=== PATIENT | male | born 1955 | race Caucasian/White ===

== ENCOUNTER 2020-02-13 09:20 | Inpatient (IN) | payer OTHER ==
[~2020-02-13] VITALS: Ht 177.8 cm; Wt 97.9 kg
[2020-02-13 10:14] LABS: BASOPHILS % (AUTO) 0 % (0-1); EOSINOPHILS % (AUTO) 0 % (1-7); LYMPHOCYTES % (AUTO) 10 % (22-44); MEAN CORPUSCULAR HEMOGLOBIN 31.2 pg (27.5-34.5); MEAN PLATELET VOLUME 7.5 fL (7.4-10.4); MONOCYTES % (AUTO) 9 % (2-9); NEUTROPHILS % (AUTO) 81 % (42-75); PLATELET COUNT 264 x10^3/uL (130-400); RED BLOOD COUNT 5.39 x10^6/uL (4.38-5.82); RED CELL DISTRIBUTION WIDTH 13.7 % (9.4-14.8)
[2020-02-13 10:19] LABS: MD NO
[2020-02-13 10:21] LABS: ANION GAP 6 mmol/L (5-15); CALCIUM 8.9 mg/dL (8.5-10.1); CHLORIDE 109 mmol/L (98-107)
[2020-02-13] MEDS ORDERED: SODIUM CHLORIDE FLUSH 10ML SYR IVF PRN (11:00)
[2020-02-13] MEDS ORDERED: ACETAMINOPHEN 325 MG TABLET PO PRN (11:30)
[2020-02-13] MEDS ORDERED: ONDANSETRON 2MG/ML, 2ML IVPush PRN (11:30)
[2020-02-13] MEDS ORDERED: ONDANSETRON ODT 4 MG PO PRN (11:30)
[2020-02-13] MEDS: HEPARIN 5,000 UNITS/ML, 1ML SQ SCH ×2 (11:30→21:38)
[2020-02-13] MEDS ORDERED: HEPARIN 5,000 UNITS/ML, 1ML ONE (11:35)
[2020-02-13] MEDS ORDERED: CARVEDILOL 3.125 MG TABLET ONE (11:35)
[2020-02-13] MEDS: CARVEDILOL 6.25 MG TABLET PO SCH ×2 (11:38→18:47)
[2020-02-13] MEDS: SODIUM CHLORIDE 0.9% 1,000 ML IV SCH (11:38)
--- NOTE | 2020-02-13 12:25 | NUR ---
PT TO MRI
[2020-02-13 15:25] VITALS: BP 195/118
[2020-02-13 18:45] VITALS: BP 176/112
[2020-02-13 19:13] VITALS: BP 175/107
[2020-02-13 21:33] VITALS: BP_SYST 166; BP_SYST 174; BP_DIAS 103; BP_DIAS 110
[2020-02-13] MEDS: ATORVASTATIN 40 MG TABLET PO SCH (21:37)
[2020-02-14 01:42] VITALS: BP 139/85
[2020-02-14] MEDS: SODIUM CHLORIDE 0.9% 1,000 ML IV SCH (03:38)
[2020-02-14 03:47] LABS: BASOPHILS % (AUTO) 1 % (0-1); EOSINOPHILS % (AUTO) 1 % (1-7); LYMPHOCYTES % (AUTO) 17 % (22-44); MEAN CORPUSCULAR HEMOGLOBIN 30.9 pg (27.5-34.5); MEAN CORPUSCULAR HGB CONC 33.3 g/dL (33.2-36.2); MEAN PLATELET VOLUME 7.8 fL (7.4-10.4); MONOCYTES % (AUTO) 11 % (2-9); NEUTROPHILS % (AUTO) 71 % (42-75); PLATELET COUNT 247 x10^3/uL (130-400); RED BLOOD COUNT 4.86 x10^6/uL (4.38-5.82); RED CELL DISTRIBUTION WIDTH 13.6 % (9.4-14.8)
[2020-02-14 03:54] LABS: MD NO
[2020-02-14 04:01] LABS: ANION GAP 4 mmol/L (5-15); CALCIUM 8.5 mg/dL (8.5-10.1); CHLORIDE 108 mmol/L (98-107)
[2020-02-14 04:03] LABS: CHOL/HDL RATIO 3.9; CHOLESTEROL, TOTAL 155 mg/dL (140-239); HDL CHOL % 26 % (26-37); HDL CHOLESTEROL (DIRECT) 40 mg/dL (40-60); LDL CHOLESTEROL,CALCULATED 82 mg/dL (54-169); LDL/HDL RATIO 2.1 (0.5-3.0); TRIGLYCERIDES 164 mg/dL (50-200); VLDL CHOLESTEROL 33 mg/dL (0-25)
[2020-02-14 05:57] VITALS: BP 177/118
[2020-02-14] MEDS: ASPIRIN 325 MG TABLET PO SCH (06:00)
[2020-02-14] MEDS: HEPARIN 5,000 UNITS/ML, 1ML SQ SCH ×3 (06:01→21:55)
[2020-02-14] MEDS: CARVEDILOL 6.25 MG TABLET PO SCH ×2 (06:01→17:19)
[2020-02-14 06:37] VITALS: BP 178/109
[2020-02-14] MEDS ORDERED: SENNA/DOCUSATE TABLET PO SCH ×2 (09:00→21:00)
[2020-02-14] MEDS: SENNA/DOCUSATE TABLET PO SCH (09:30)
[2020-02-14] MEDS: ISOSORBIDE DINITRATE 10 MG TABLET PO SCH ×3 (10:32→21:54)
[2020-02-14] MEDS ORDERED: SODIUM CHLORIDE 0.9% 1,000 ML IV SCH (11:30)
[2020-02-14 12:10] VITALS: BP 167/89
[2020-02-14 17:15] VITALS: BP 164/96
[2020-02-14 21:53] VITALS: BP 164/97
[2020-02-14] MEDS: ATORVASTATIN 40 MG TABLET PO SCH (21:55)
[2020-02-15 01:45] VITALS: BP 151/93
[2020-02-15 05:58] VITALS: BP 164/95
[2020-02-15] MEDS: ASPIRIN 325 MG TABLET PO SCH (05:59)
[2020-02-15] MEDS: CARVEDILOL 6.25 MG TABLET PO SCH (05:59)
[2020-02-15] MEDS: HEPARIN 5,000 UNITS/ML, 1ML SQ SCH ×2 (06:00→13:30)
[2020-02-15 06:25] VITALS: BP 153/93
[2020-02-15] MEDS: SENNA/DOCUSATE TABLET PO SCH (09:00)
[2020-02-15] MEDS: ISOSORBIDE DINITRATE 10 MG TABLET PO SCH (09:10)
[2020-02-15] MEDS ORDERED: CLOPIDOGREL 75 MG TABLET PO SCH (10:30)
[2020-02-15 12:04] VITALS: BP 163/94
[2020-02-15] MEDS ORDERED: CARV6.2512 PO (12:32)
[2020-02-15] MEDS ORDERED: ISOS10TA2 PO (12:32)
[2020-02-15] MEDS ORDERED: ASPI-515 PO (12:32)
[2020-02-15] MEDS ORDERED: HYDR-3342 PO (12:32)
[2020-02-15] MEDS ORDERED: ATOR40TA78 PO (12:32)
[2020-02-15] MEDS ORDERED: CLOP75TA PO (12:32)
[2020-02-15] MEDS ORDERED: ISOSORBIDE DINITRATE 20 MG TABLET PO SCH (16:00)
[2020-02-16] MEDS ORDERED: ASPIRIN 81 MG TABLET CHEW PO SCH (09:00)
== END 2020-02-15 17:22 | disposition home or self-care (01) | DRG 66 ==
LOC: ED 10:22 → EDIP 11:45 → 4WST 13:34 → EDIP 13:36 → 4WST 15:20
PROVIDERS: ADMIT Internal Medicine; ATTEND Internal Medicine
DX: I63.89 Other cerebral infarction (principal); I10 Essential (primary) hypertension; E66.9 Obesity, unspecified; Z68.31 Body mass index [BMI] 31.0-31.9, adult; Z91.14 Patient's other noncompliance with medication regimen
CPT/HCPCS: 36415; 70450; 70551; 80048; 80061; 82040; 85025; 93005; 93306; 93356; 93880; G0378; J1644; J7030

== ENCOUNTER 2020-02-24 17:19 | Inpatient (IN) | payer OTHER ==
[~2020-02-24] VITALS: Ht 177.8 cm; Wt 176.2 kg
[~2020-02-24 17:19] MED LIST: ASPI-515 PO; ATOR40TA78 PO; CARV6.2512 PO; CLOP75TA PO; HYDR-3342 PO; ISOS10TA2 PO
--- NOTE | 2020-02-24 17:42 | NUR ---
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
--- NOTE | 2020-02-24 18:00 | NUR ---
THIS IS A 64 YO MALE COMING IN FOR HIGH BLOOD PRESSURE. PATIENT EXPERIENCED BLURRED VISION AND TUCKER EARLIER TODAY, TUCKER IS STILL PRESENT, BLURRED VISION HAS RESOLVED. PATIENT WAS SEEN HERE APPROX 11 DAYS AGO FOR A STROKE. PATIENT HAS MINOR DEFICITS FROM STROKE, SLIGHTLY DIMINISHED SENSATION ON RIGHT UE AND LE, AMBULATORY WITH STEADY GAIT, CLEAR SPEECH, PERRLA, EQUAL STRENGTH IN ALL EXTREMITIES. PIV PLACED, ALL MONITORING IN PLACE, NSR ON [employer] REPRESENTATIVE. CALL LIGHT IN REACH, ERP IN ROOM FOR EVAL
[2020-02-24 18:16] LABS: BASOPHILS % (AUTO) 1 % (0-1); EOSINOPHILS % (AUTO) 1 % (1-7); LYMPHOCYTES % (AUTO) 14 % (22-44); MEAN CORPUSCULAR HEMOGLOBIN 31.2 pg (27.5-34.5); MEAN CORPUSCULAR HGB CONC 33.6 g/dL (33.2-36.2); MEAN PLATELET VOLUME 7.3 fL (7.4-10.4); MONOCYTES % (AUTO) 7 % (2-9); NEUTROPHILS % (AUTO) 76 % (42-75); PLATELET COUNT 321 x10^3/uL (130-400); RED BLOOD COUNT 5.04 x10^6/uL (4.38-5.82); RED CELL DISTRIBUTION WIDTH 13.8 % (9.4-14.8)
[2020-02-24 18:27] LABS: MD NO
[2020-02-24 18:29] LABS: ANION GAP 6 mmol/L (5-15); CHLORIDE 110 mmol/L (98-107)
[2020-02-24] MEDS ORDERED: hydrALAzine 20 MG/ML, 1ML IV ONE (18:30)
--- NOTE | 2020-02-24 18:32 | NUR ---
PATIENT MEDICATED PER EMAR
[2020-02-24 18:35] LABS: ALANINE AMINOTRANSFERASE 24 U/L (12-78); ALKALINE PHOSPHATASE 52 U/L (45-117); BILIRUBIN,TOTAL 0.8 mg/dL (0.2-1.0); CREATININE 1.16 mg/dL (0.7-1.3); TOTAL PROTEIN 7.8 g/dL (6.4-8.2); TROPONIN I < 0.015 ng/mL (0.000-0.045)
--- NOTE | 2020-02-24 19:07 | NUR ---
PATIENT AMBULATORY WITH STEADY GAIT TO RESTROOM
[2020-02-24] MEDS ORDERED: ENALAPRILAT 1.25 MG/ML, 1ML ONE (20:15)
--- NOTE | 2020-02-24 20:27 | NUR ---
TASK RN, COVERING PRIMARY RN MEAL BREAK. MED GIVEN PER EMAR FOR HTN 212/131 LEFT ARM, 204/121 ON R ARM. PT DENIES PAIN OR DISCOMFORT AT THIS TIME. ATTEMPT TO DO MED REC. PT DOES NOT REMEMBER ANY MEDICATION NAMES OR DOSAGES. CONTINUE TO MONITOR. CALL LIGHT WITHIN REACH.
[2020-02-24] MEDS ORDERED: ENALAPRILAT 1.25 MG/ML, 2ML IV ONE (20:30)
[2020-02-24] MEDS ORDERED: ACETAMINOPHEN 325 MG TABLET PO PRN (21:00)
[2020-02-24] MEDS ORDERED: ENALAPRILAT 1.25 MG/ML, 2ML IV PRN (21:00)
[2020-02-24] MEDS ORDERED: ONDANSETRON ODT 4 MG PO PRN (21:00)
[2020-02-24] MEDS ORDERED: POLYETHYLENE GLYCOL 17 GM PACKET PO PRN (21:00)
[2020-02-24] MEDS ORDERED: BISACODYL 10 MG SUPP PR PRN (21:00)
--- NOTE | 2020-02-24 21:49 | NUR ---
REPORT GIVEN TO LYLA COLBERT. PLAN OF CARE DISCUSSED
[2020-02-24 22:04] VITALS: BP 224/125
[2020-02-24] MEDS: ISOSORBIDE DINITRATE 20 MG TABLET PO SCH (22:27)
[2020-02-24] MEDS: SODIUM CHLORIDE FLUSH 10ML SYR IVF SCH (22:28)
[2020-02-24] MEDS: ATORVASTATIN 40 MG TABLET PO SCH (22:28)
[2020-02-24] MEDS: CARVEDILOL 6.25 MG TABLET PO SCH (22:28)
[2020-02-24] MEDS ORDERED: CALCIUM CARBONATE 500 MG TAB.CHEW PO PRN (23:30)
[2020-02-25] VITALS (11 sets, daily range): BP systolic 135–175; BP diastolic 84–104
[2020-02-25] MEDS: CARVEDILOL 6.25 MG TABLET PO SCH ×2 (06:21→16:29)
[2020-02-25] MEDS: CLOPIDOGREL 75 MG TABLET PO SCH (07:39)
[2020-02-25] MEDS: ISOSORBIDE DINITRATE 20 MG TABLET PO SCH ×3 (07:40→19:55)
[2020-02-25] MEDS: SENNA/DOCUSATE TABLET PO SCH (07:40)
[2020-02-25] MEDS: SODIUM CHLORIDE FLUSH 10ML SYR IVF SCH ×2 (07:40→19:55)
[2020-02-25] MEDS ORDERED: LISINOPRIL 10 MG TABLET PO SCH (09:00)
[2020-02-25] MEDS: LISINOPRIL 10 MG TABLET PO SCH (19:54)
[2020-02-25] MEDS: ATORVASTATIN 40 MG TABLET PO SCH (19:55)
[2020-02-26 01:32] VITALS: BP 121/79
[2020-02-26 04:38] VITALS: BP 132/90
[2020-02-26] MEDS: CARVEDILOL 6.25 MG TABLET PO SCH (06:37)
[2020-02-26 06:38] VITALS: BP 160/103
[2020-02-26 07:11] VITALS: BP 167/112
[2020-02-26] MEDS: LISINOPRIL 10 MG TABLET PO SCH (08:13)
[2020-02-26] MEDS: CLOPIDOGREL 75 MG TABLET PO SCH (08:13)
[2020-02-26] MEDS: ISOSORBIDE DINITRATE 20 MG TABLET PO SCH ×2 (08:13→16:26)
[2020-02-26] MEDS: SENNA/DOCUSATE TABLET PO SCH (08:14)
[2020-02-26] MEDS: SODIUM CHLORIDE FLUSH 10ML SYR IVF SCH (08:16)
[2020-02-26] MEDS ORDERED: CHLORTHALIDONE 25 MG TABLET PO SCH (09:30)
[2020-02-26 09:36] VITALS: BP 146/88
[2020-02-26] MEDS ORDERED: CLON0.1T22 PO (12:13)
[2020-02-26] MEDS ORDERED: HYDR-3343 PO (12:13)
[2020-02-26] MEDS ORDERED: LISI-167 PO (12:13)
[2020-02-26] MEDS ORDERED: CHLO25TA PO (12:13)
[2020-02-26 12:43] VITALS: BP 150/90
[2020-02-26] MEDS ORDERED: CARVEDILOL 6.25 MG TABLET PO SCH (18:00)
== END 2020-02-26 17:43 | disposition home or self-care (01) | DRG 305 ==
LOC: ED 20:07 → EDIP 20:08 → 4WST 22:00
PROVIDERS: ADMIT Internal Medicine; ATTEND Internal Medicine
DX: I16.0 Hypertensive urgency (principal); I50.30 Unspecified diastolic (congestive) heart failure; Z68.43 Body mass index [BMI] 50.0-59.9, adult; F12.90 Cannabis use, unspecified, uncomplicated; I11.0 Hypertensive heart disease with heart failure; E78.5 Hyperlipidemia, unspecified; E66.01 Morbid (severe) obesity due to excess calories; Z86.73 Personal history of transient ischemic attack (TIA), and cerebral infarction without residual deficits; Z91.19 Patient's noncompliance with other medical treatment and regimen
CPT/HCPCS: 36415; 70450; 71045; 80053; 84484; 85025; 93005; 93975; 96374; 99291; G0378

== ENCOUNTER 2020-09-14 11:31 | Emergency (ER) | payer MEDICARE ==
[~2020-09-14] VITALS: Ht 177.8 cm; Wt 99.7 kg
[~2020-09-14 11:31] MED LIST changes: -ASPI-515 PO; +ASPI-963 PO; +CHLO25TA PO; +CLON0.1T22 PO; +HYDR-3343 PO; +LISI-167 PO
--- NOTE | 2020-09-14 11:55 | NUR ---
PA AT BS
[2020-09-14 12:12] LABS: BASOPHILS % (AUTO) 1 % (0-1); EOSINOPHILS % (AUTO) 2 % (1-7); LYMPHOCYTES % (AUTO) 17 % (22-44); MEAN CORPUSCULAR HEMOGLOBIN 31.4 pg (27.5-34.5); MEAN CORPUSCULAR HGB CONC 34.3 g/dL (33.2-36.2); MEAN PLATELET VOLUME 7.3 fL (7.4-10.4); MONOCYTES % (AUTO) 7 % (2-9); NEUTROPHILS % (AUTO) 74 % (42-75); PLATELET COUNT 295 x10^3/uL (130-400); RED BLOOD COUNT 5.04 x10^6/uL (4.38-5.82); RED CELL DISTRIBUTION WIDTH 14.2 % (9.4-14.8)
[2020-09-14 12:14] LABS: MD NO
[2020-09-14 12:21] LABS: ALBUMIN 3.8 g/dL (3.4-5.0); ANION GAP 4 mmol/L (5-15); CALCIUM 8.8 mg/dL (8.5-10.1); CHLORIDE 112 mmol/L (98-107)
--- NOTE | 2020-09-14 12:29 | NUR ---
PT SITTING COMFORTABLE ON GUSETH, ON HIS PHONE. CALL LIGHT WITHIN REACH. NADN. NO NEEDS AT THIS TIME
--- NOTE | 2020-09-14 12:59 | NUR ---
BREAK RN: PT AMBULATED TO RESTROOM WITH STEADY GAIT. PT RECONNECTED TO MONITORING. CALL LIGHT IN REACH.
--- NOTE | 2020-09-14 13:07 | NUR ---
BREAK RN: ERP NOTIFIED OF CONTINUED HIGH BP. VERBAL ORDER RECEIVED FOR CLONIDINE 0.1MG. ORDER INPUT AND LICENSED ARCHITECT PER JUL. PT CONNECTED TO MONITORING. CALL LIGHT IN REACH. REPORT GIVEN TO PRIMARY RN.
[2020-09-14 13:25] VITALS: BP 172/99
--- NOTE | 2020-09-14 14:07 | NUR ---
Patient given discharge instructions and they have confirmed that they understand the instructions. Patient ambulatory with steady gait.
== END 2020-09-14 14:08 | disposition home or self-care (01) ==
LOC: ED 13:26
DX: I10 Essential (primary) hypertension (principal); R94.31 Abnormal electrocardiogram [ECG] [EKG]; Z86.73 Personal history of transient ischemic attack (TIA), and cerebral infarction without residual deficits
CPT/HCPCS: 36415; 80048; 82040; 85025; 93005; 99284